=== PATIENT | female | born 1935 | race Caucasian/White ===

== ENCOUNTER 2018-07-01 16:37 | Emergency (ER) | payer MEDICARE, OTHER ==
[~2018-07-01] VITALS: Ht 152.4 cm; Wt 45.0 kg
[~2018-07-01 16:37] MED LIST: ALAWAY0.025 % OP; ALLEGRA180 MG PO; AMOXICILLIN500 MG PO; ASPIRIN 81 LOW81 MG; ASPIRIN EC81 MG PO; ASTELIN NASA137 MCG; FERROUS SULFAT325 MG PO; FLUZONE SPLT1 M1 IM; FORADIL; FORADIL IN; LOPRESSOR 550 MG/TAB PO; LOVASTATIN40 MG PO; MEVACOR40 MG PO; NASONEX50 MCG/AC NAB; NASONEX50 MCG/ACT; NIASPAN1000 ER PO; PREVACID30 M1 PO; PREVACID30 M3 PO; SUSTANE PO; SYNTHROID75 MCG PO; VESICARE5 MG PO
[2018-07-01] MEDS ORDERED: ISOSORB MONO30 MG PO (17:03)
[2018-07-01] MEDS ORDERED: LOSARTAN POTASS50 MG PO (17:04)
[2018-07-01 17:10] LABS: HEMATOCRIT 34.2 % (37.0-47.0); HEMOGLOBIN 11.4 g/dl (12.0-16.0); IMMATURE GRANULOCYTES 0.5 % (0.0-5.0); MEAN CELL VOLUME 97.4 fL CALC (80.0-100.0); MEAN CORPUSCULAR HGB 32.5 pG CALC (26.0-32.0); MEAN CORPUSCULAR HGB CONC 33.3 g/L CALC (32.0-36.0); NEUT# 7.71 thou/uL (2.00-7.15); RED BLOOD COUNT 3.51 mill/uL (4.20-5.60); RED CELL DISTRI WIDTH 11.8 % (11.5-15.5)
[2018-07-01 17:12] VITALS: BP 127/74
[2018-07-01 17:29] LABS: ACT PARTIAL THROMBO TIME 24.2 SECONDS (20.0-32.5); ALBUMIN 4.2 g/dL (3.2-5.0); ALKALINE PHOSPHATASE 60 u/l (38-126); AMYLASE 44 u/l (30-110); ANION GAP 13 (6-22 (CALC)); BILIRUBIN, TOTAL 0.8 mg/dL (0.0-1.4); BUN 15 mg/dL (8-23); BUN/CREATININE RATIO 18 (12-20 (CALC)); CARBON DIOXIDE 24 mmol/l (22-30); CHLORIDE 105 mmol/l (95-108); CREATININE 0.9 mg/dL (0.5-1.0); D-DIMER 0.75 mg/L (0.19-0.60); GFR 60 ML/MIN (>=60 (CALC)); GFR FOR AFR.AMER. > 60 ML/MIN (>=60 (CALC)); LIPASE 105 u/l (23-300); POTASSIUM 4.2 mmol/l (3.5-5.1); PROTHROMBIN TIME 10.3 SECONDS (9.0-12.5); SGOT/AST 45 u/l (9-36); SODIUM 137 mmol/l (137-146); TOTAL PROTEIN 7.3 g/dL (6.3-8.2)
[2018-07-01 17:42] LABS: MYOGLOBIN 60 ng/mL (0 - 62)
== END 2018-07-01 17:31 | disposition short-term general hospital (02) ==
LOC: ED 16:37
PROVIDERS: Family Medicine
DX: I20.0 Unstable angina (principal); I10 Essential (primary) hypertension

== ENCOUNTER 2018-09-16 13:30 | Outpatient (RCR) | payer MEDICARE, OTHER ==
[~2018-09-16 13:30] MED LIST changes: +BRILINTA90 MG PO; +CALTRATE 600+D1 CHW; +CENTRU3 PO; +CO Q 10100 MG PO; +ISOSORB MONO30 MG PO; +LIPITOR20 M1 PO; +LOSARTAN POTASS50 MG PO; -LOVASTATIN40 MG PO; +MONTELUKAST SOD10 MG PO
== END 2018-09-16 14:35 | disposition home or self-care (01) ==
LOC: CR 13:30
PROVIDERS: ATTEND Internal Medicine
DX: Z95.818 Presence of other cardiac implants and grafts (principal)

== ENCOUNTER → 2018-09-18 | Outpatient (REF) | payer MEDICARE, OTHER ==
[2018-09-18 08:16] LABS: HEMATOCRIT 35.8 % (37.0-47.0); HEMOGLOBIN 11.7 g/dl (12.0-16.0); MEAN CORPUSCULAR HGB 32.7 pG CALC (26.0-32.0); MEAN CORPUSCULAR HGB CONC 32.7 g/L CALC (32.0-36.0); RED BLOOD COUNT 3.58 mill/uL (4.20-5.60); RED CELL DISTRI WIDTH 12.7 % (11.5-15.5)
[2018-09-18 09:24] LABS: ALBUMIN 4.1 g/dL (3.2-5.0); ALKALINE PHOSPHATASE 57 u/l (38-126); ANION GAP 14 (6-22 (CALC)); BILIRUBIN, TOTAL 0.9 mg/dL (0.0-1.4); BUN 18 mg/dL (8-23); BUN/CREATININE RATIO 18 (12-20 (CALC)); CALCULATED LDLCHOLESTEROL 50 mg/dL (62-129 (CALC)); CARBON DIOXIDE 27 mmol/l (22-30); CHLORIDE 106 mmol/l (95-108); CHOLESTEROL HDL RATIO 2.5 (<4.4 (CALC)); GFR 53 ML/MIN (>=60 (CALC)); GFR FOR AFR.AMER. > 60 ML/MIN (>=60 (CALC)); HDL CHOLESTEROL 47 mg/dL (>=40); POTASSIUM 4.8 mmol/l (3.5-5.1); SGOT/AST 34 u/l (9-36); SODIUM 143 mmol/l (137-146); TOTAL CHOLESTEROL 119 mg/dl (0-199); TOTAL PROTEIN 6.9 g/dL (6.3-8.2); TOTAL TRIGLYCERIDES 113 mg/dl (30-149); VLDL CHOLESTROL 23 mg/dl (0-48 (CALC))
[2018-09-18 09:40] LABS: TSH, 3RD GENERATION 0.15 uIU/mL (0.47 - 4.68)
== END | disposition home or self-care (01) ==
LOC: LAB 07:38
PROVIDERS: ATTEND Internal Medicine
DX: I25.10 Atherosclerotic heart disease of native coronary artery without angina pectoris (principal); E03.9 Hypothyroidism, unspecified

== ENCOUNTER 2018-10-24 20:55 | Emergency (ER) | payer MEDICARE, OTHER ==
[~2018-10-24] VITALS: Ht 152.4 cm; Wt 42.0 kg
[2018-10-25] MEDS ORDERED: CODEINE/GUAIFEN1 SOL PO (00:06)
[2018-10-25] MEDS ORDERED: PROVENTIL HFA IN (00:06)
[2018-10-25 00:32] VITALS: BP 134/76
== END 2018-10-25 00:20 | disposition home or self-care (01) ==
LOC: ED 20:55
DX: J10.1 Influenza due to other identified influenza virus with other respiratory manifestations (principal); I10 Essential (primary) hypertension